=== PATIENT | male | born 1990 | race Caucasian/White ===

== ENCOUNTER 2016-04-30 12:56 | Inpatient (IN) | payer OTHER ==
[2016-04-30 15:02] VITALS: BMI 27.7
--- NOTE | 2016-04-30 16:09 | HP ---
COWS - Scale Resting Pulse: 0= IN 80 or Below Sweatin=Flushed/Facial Moisture Restless Observation: 3= Extraneous Movement Pupil Size: 2= Moderately Dilated Bone or Joint Aches: 2= Severe Diffuse Aches Runny Nose/ Eye Tearin= Runny Nose/Eyes GI Upset > 30mins: 3= Vomiting/Diarrhea Tremor Observation: 2= Slight Tremor Visible Yawning Observation: 2= >3x During Session Anxiety or Irritability: 2=Irritable/Anxious Goose Flesh Skin: 0=Smooth Skin COWS Score: 20 Admission ROS S - HPI Chief Complaint: I NEED HELP TO STOP USING HEROIN,COCAINE,AND XANAX Allergies/Adverse Reactions: Allergies Allergy/AdvReac Type Severity Reaction Status Date / Time No Known Allergies Allergy Verified 04/30/16 15:34 History of Present Illness: THIS 25 YEARS OLD MALE WITH HEROIN,COCAINE AND MARIJUANA DEPENDENCE,WITHDRAWAL SYMPTOM, ADMISSIONS IN DETOX TWICE BEFORE,LAST DETOX 08/30/13 TO 09/01/13 ANXIETY,DEPRESSION NICOTINE DEPENDENCE LONGEST PERIOD OF SOBRIETY 2 YEARS Exam Limitations: No Limitations - Ebola screening Have you traveled outside of the country in the last 21 days: No Have you had contact with anyone from an Ebola affected area: No Have you been sick,other than usual withdrawal symptoms: No Do you have a fever: No - Review of Systems Constitutional: Chills, Diaphoresis, Loss of Appetite, Malaise, Night Sweats, Weakness EENT: reports: Tearing, Nose Congestion Respiratory: reports: No Symptoms reported Cardiac: reports: No Symptoms Reported GI: reports: Diarrhea, Nausea, Vomiting, Abdominal cramping : reports: No Symptoms Reported Musculoskeletal: reports: Back Pain, Muscle Pain Integumentary: reports: Dryness Neuro: reports: Headache, Tremors Endocrine: reports: No Symptoms Reported Hematology: reports: No Symptoms Reported Psychiatric: reports: Agitated (INSOMNIA), Anxious Patient History - Patient Medical History Hx Anemia: No Hx Asthma: No Hx Chronic Obstructive Pulmonary Disease (COPD): No Hx Cancer: No Hx Cardiac Disorders: No Hx Congestive Heart Failure: No Hx Hypertension: No Hx Hypercholesterolemia: No Hx Pacemaker: No HX Cerebrovascular Accident: No Hx Seizures: No Hx Dementia: No Hx Diabetes: No Hx Gastrointestinal Disorders: No Hx Liver Disease: No Hx Genitourinary Disorders: No Hx Sexually Transmitted Disorders: No Hx Renal Disease (ESRD): No Hx Thyroid Disease: No Hx Human Immunodeficiency Virus (HIV): No (LAST 2014 NEGATIVE) Hx Hepatitis C: No Hx Depression: Yes (ANXIETY,INSOMNIA) Hx Suicide Attempt: No Hx Bipolar Disorder: No Hx Schizophrenia: No Other Medical History: NO SUICIDAL,NO HOMICIDAL - Patient Surgical History Past Surgical History: No - PPD History Previous Implant?: Yes Documented Results: Negative w/o proof Implanted On Prior R Admission?: Yes Date: 01/01/14 Results: negative PPD to be Administered?: Yes - Smoking Cessation Smoking history: Current every day smoker Have you smoked in the past 12 months: Yes Aproximately how many cigarettes per day: 20 Hx Chewing Tobacco Use: No Initiated information on smoking cessation: Yes 'Breaking Loose' booklet given: 04/30/16 - Substances Abused Heroin Route: Injection Frequency: Daily Amount used: 20 bags Age of first use: 15 Date of Last Use: 04/29/16 Alprazolam (Xanax) Route: Oral Frequency: Daily Amount used: 4mg Age of first use: 14 Date of Last Use: 04/29/16 Marijuana/Hashish Route: Smoking Frequency: Daily Amount used: 1 joint Age of first use: 12 Date of Last Use: 04/29/16 Family Disease History - Family Disease History Family History: Denies Admission Physical Exam S - Vital Signs Vital Signs: Vital Signs - 24 hr 04/30/16 15:00 Temperature 97.9 F Pulse Rate 79 Respiratory 18 Rate Blood Pressure 129/67 - Physical General Appearance: Yes: Moderate Distress, Tremorous, Irritable, Sweating, Anxious HEENTM: Yes: Nasal Congestion Respiratory: Yes: Lungs Clear Neck: Yes: Within Normal Limits Breast: Yes: Breast Exam Deferred Cardiology: Yes: Within Normal Limits, Regular Rhythm, S1, S2, Tachycardia Abdominal: Yes: Within Normal Limits, Normal Bowel Sounds, Non Tender, Flat, Soft Genitourinary: Yes: Within Normal Limits Back: Yes: Muscle Spasm Musculoskeletal: Yes: Back pain, Joint Stiffness, Muscle Pain Extremities: Yes: Tremors Neurological: Yes: hospital admissions officer II-XII NML intact, Fully Oriented, Alert, Motor Strength 5/5 Integumentary: Yes: Dry Lymphatic: Yes: Within Normal Limits - Diagnostic (1) Opioid dependence with withdrawal Current Visit: Yes Status: Acute (2) Uncomplicated sedative, hypnotic or anxiolytic withdrawal Current Visit: Yes Status: Acute (3) Cocaine dependence Current Visit: No Status: Acute (4) Nicotine dependence Current Visit: Yes Status: Acute (5) Insomnia Current Visit: Yes Status: Acute Cleared for Admission [facility] - Detox or Rehab [facility] Level of Care: Medically Managed Detox Regimen/Protocol: Methadone [facility] Breath Alcohol Content Breath Alcohol Content: 0 Urine Drug Screen - Results Urine Drug Screen Results: THC-Marijuana, OPI-Opiates, OXY-Oxycodone
[2016-04-30] MEDS ORDERED: MAGNESIUM CITRATE 300 ML BOTTLE PO PRN (16:20)
[2016-04-30] MEDS ORDERED: diphenhydrAMINE HCL 50 MG CAPSULE PO PRN (16:20)
[2016-04-30] MEDS ORDERED: guaiFENesin/D-METHORPHAN HB 10 ML UNIT-DOSE CUPS PO PRN (16:20)
[2016-04-30] MEDS ORDERED: MAGNESIUM HYDROX 2400MG/30ML ORAL SUSPENSION 30 ML CUP PO PRN (16:20)
[2016-04-30] MEDS ORDERED: P-EPHED 60MG/TRIPROLIDI 2.5MG TABLET PO PRN (16:20)
[2016-04-30] MEDS ORDERED: MENTHOL/PHENOL 1 EACH UD MM PRN (16:20)
[2016-04-30] MEDS ORDERED: LOPERAMIDE HCL 2 MG CAPSULE PO PRN (16:20)
[2016-04-30] MEDS ORDERED: IBUPROFEN 400 MG TABLET (FP) PO PRN (16:20)
[2016-04-30] MEDS ORDERED: MAG HYDROX/AL HYDROX/SIMETH 30 ML UNIT-DOSE CUP PO PRN (16:20)
[2016-04-30] MEDS ORDERED: chlordiazePOXIDE HCL 25 MG CAPSULE PO PRN (16:20)
[2016-04-30] MEDS ORDERED: ACETAMINOPHEN 325 MG TABLET (FP) PO PRN (16:20)
[2016-04-30] MEDS ORDERED: CYCLOBENZAPRINE HCL 10 MG TABLET (FP) PO PRN (16:40)
[2016-04-30] MEDS ORDERED: METHADONE HCL 10 MG TABLET (FOR DETOX USE ONLY) PO ONE ×3 (17:30→23:00)
[2016-04-30] MEDS: diazePAM 5 MG TABLET PO PRN ×2 (17:42→22:37)
[2016-04-30] MEDS: NICOTINE 21 MG/24 HOURS TOPICAL PATCH TD SCH (17:45)
--- NOTE | 2016-04-30 17:51 | CONSULT ---
[facility] Psychiatric Consult - Data Date of interview: 04/30/16 Admission source: [facility] Identifying data: Readmission to [facility] for this 25 y/o male seeking detox treatment on for heroin,cannabis,cocaine and benzodiazepine (xanax) dependence.Patient is single without children,domiciled, unemployed and supported by his fiancee. Substance Abuse History: - Smoking Cessation. Smoking history: Current every day smoker. Have you smoked in the past 12 months: Yes. Aproximately how many cigarettes per day: 20. Hx Chewing Tobacco Use: No. Initiated information on smoking cessation: Yes. 'Breaking Loose' booklet given: 04/30/16. - Substances Abused. Heroin. Route: Injection. Frequency: Daily. Amount used: 20 bags. Age of first use: 15. Date of Last Use: 04/29/16. Alprazolam (Xanax). Route: Oral. Frequency: Daily. Amount used: 4mg. Age of first use: 14. Date of Last Use: 04/29/16. Marijuana/Hashish. Route: Smoking. Frequency: Daily. Amount used: 1 joint. Age of first use: 12. Date of Last Use: 04/29/16. Confirmed by the patient. Medical History: Hepatitis C. Psychiatric History: Patient denies. Physical/Sexual Abuse/Trauma History: Patient denies. Additional Comment: Urine Drug Screen Results: THC-Marijuana, OPI-Opiates, OXY- Oxycodone.Noted. Mental Status Exam - Mental Status Exam Alert and Oriented to: Time, Place, Person Cognitive Function: Good Patient Appearance: Well Groomed (tall stature) Mood: Nervous, Anxious, Hopeful Affect: Mood Congruent Patient Behavior: Fatigued, Appropriate, Cooperative Speech Pattern: Clear, Appropriate Voice Loudness: Normal Thought Process: Goal Oriented Thought Disorder: Not Present Hallucinations: Denies Suicidal Ideation: Denies Homicidal Ideation: Denies Insight/Judgement: Poor Sleep: Poorly, Difficulty falling asleep Appetite: Good Muscle strength/Tone: Normal Gait/Station: Normal Psychiatric Findings - Problem List ([place] 1, 2,3) (1) Opioid dependence with withdrawal Current Visit: Yes Status: Acute (2) Uncomplicated sedative, hypnotic or anxiolytic withdrawal Current Visit: Yes Status: Acute (3) Cannabis dependence Current Visit: Yes Status: Acute (4) Cocaine dependence Current Visit: Yes Status: Acute (5) Nicotine dependence Current Visit: Yes Status: Acute (6) Drug-induced mood disorder Current Visit: Yes Status: Acute (7) Insomnia Current Visit: Yes Status: Acute - Initial Treatment Plan Initial Treatment Plan: Psychoeducation.Detoxification.Zolpidem 10 mg po hs prn.Patient is made aware of the risk of parasomnias.He agrees with this plan of care.Observation.
[2016-04-30] MEDS ORDERED: ZOLPIDEM TARTRATE 10 MG TABLET (PARK CARE ONLY) PO PRN (18:13)
[2016-04-30] MEDS ORDERED: THIAMINE HCL 100 MG TABLET (FP) PO SCH (22:00)
[2016-04-30] MEDS: cloNIDine HCL 0.1 MG TABLET PO SCH (22:37)
[2016-05-01 03:21] LABS: URINE APPEARANCE CLEAR; URINE BILIRUBIN NEGATIVE (NEGATIVE); URINE BLOOD NEGATIVE (NEGATIVE); URINE COLOR LTYELLOW; URINE GLUCOSE (UA) NEGATIVE (NEGATIVE); URINE KETONE NEGATIVE (NEGATIVE); URINE LEUK ESTERASE NEGATIVE (NEGATIVE); URINE NITRITE NEGATIVE (NEGATIVE); URINE PROTEIN NEGATIVE (NEGATIVE); URINE UROBILINOGEN NEGATIVE E.U./dl (0.2-1.0)
[2016-05-01 09:37] VITALS: BP 130/76; PULSE 65; TEMP 97.5
[2016-05-01] MEDS ORDERED: METHADONE HCL 10 MG TABLET (FOR DETOX USE ONLY) PO SCH (10:00)
[2016-05-01] MEDS ORDERED: PRENATAL VITAMINS W/ FOLIC ACID TABLET (FP) PO SCH (10:00)
[2016-05-01] MEDS ORDERED: METHADONE HCL 10 MG TABLET (FOR DETOX USE ONLY) PO ONE (10:00)
--- NOTE | 2016-05-01 10:17 | PN ---
[facility] CIWA - CIWA Score Nausea/Vomitin Muscle Tremors: 3 Anxiety: 3 Agitation: 2 Paroxysmal Sweats: 1-Minimal Palms Moist Orientation: 0-Oriented Tacttile Disturbances: 1-Very Mild Itch/Numbness Auditory Disturbances: 1-Very Mild Visual Disturbances: 1-Very Mild Sensitivity Headache: 2-Mild CIWA-Ar Total Score: 17 BHS COWS - Scale Resting Pulse: 0= [place] 80 or Below Sweatin= Chills/Flushing Restless Observation: 3= Extraneous Movement Pupil Size: 1= Pupils >than Normal Bone or Joint Aches: 2= Severe Diffuse Aches Runny Nose/ Eye Tearin= Runny Nose/Eyes GI Upset > 30mins: 2= Nausea/Diarrhea Tremor Observation of Outstretched Hands: 2= Slight Tremor Visible Yawning Observation: 1= 1-2x During Session Anxiety or Irritability: 2=Irritable/Anxious Goose Flesh Skin: 0=Smooth Skin COWS Score: 16 S Progress Note (SOAP) Subjective: ALERT,IRRITABLE,ANXIOUS,INTERRUPTED SLEEP,TREMOR,PAIN IN THE BODY AND BACK Objective: 05/01/16 10:15 Vital Signs Temperature 97.5 F L 05/01/16 09:37 Pulse Rate 65 05/01/16 09:37 Respiratory Rate 18 05/01/16 09:37 Blood Pressure 130/76 05/01/16 09:37 O2 Sat by Pulse Oximetry (%) EKG NSR,NORMAL ECG 05/01/16 10:16 Laboratory Last Values Urine Color Ltyellow 04/30/16 23:03 Urine Appearance Clear 04/30/16 23:03 Urine pH 6.0 (5.0-8.0) 04/30/16 23:03 Ur Specific [place] 1.008 (1.001-1.035) 04/30/16 23:03 Urine Protein Negative (NEGATIVE) 04/30/16 23:03 Urine Glucose (UA) Negative (NEGATIVE) 04/30/16 23:03 Urine Ketones Negative (NEGATIVE) 04/30/16 23:03 Urine Blood Negative (NEGATIVE) 04/30/16 23:03 Urine Nitrite Negative (NEGATIVE) 04/30/16 23:03 Urine Bilirubin Negative (NEGATIVE) 04/30/16 23:03 Urine Urobilinogen Negative E.U./dl (0.2-1.0) 04/30/16 23:03 Ur Leukocyte Esterase Negative (NEGATIVE) 04/30/16 23:03 LABS PENDING Assessment: 05/01/16 10:16 WITHDRAWAL SYMPTOM Plan: CONTINUE DETOX
[2016-05-01] MEDS: cloNIDine HCL 0.1 MG TABLET PO SCH (10:28)
[2016-05-01] MEDS: NICOTINE 21 MG/24 HOURS TOPICAL PATCH TD SCH (10:29)
[2016-05-01] MEDS: diazePAM 5 MG TABLET PO PRN (10:32)
[2016-05-01 11:08] LABS: MCH 30.8 pg (25.7-33.7); MCHC 33.9 g/dl (32.0-35.9); MEAN CELL VOLUME 90.8 fl (80-96); MEAN PLT VOLUME 9.4 fl (7.5-11.1); PLATELET COUNT 274 K/MM3 (134-434); RDW 12.9 % (11.9-15.9); WHITE BLOOD COUNT 7.1 K/mm3 (4.0-10.0)
[2016-05-01 11:12] LABS: ALBUMIN 4.1 g/dl (3.4-5.0); ANION GAP 6 (8-16); CALCIUM 9.3 mg/dL (8.5-10.1); CO2 30 mmol/L (21-32); CREATININE 0.7 mg/dL (0.7-1.3); GLUCOSE,RANDOM 96 mg/dL (74-106); SGOT/AST 14 U/L (15-37); SGPT/ALT 32 U/L (12-78)
[2016-05-01 11:14] LABS: ALK PHOS 66 U/L (45-117); BILIRUBIN,TOTAL 0.3 mg/dL (0.2-1.0); TOT PROT 7.4 g/dl (6.4-8.2)
--- NOTE | 2016-05-01 13:39 | EKG ---
Test Reason : Blood Pressure : / mmHG Vent. Rate : 060 BPM Atrial Rate : 060 BPM P-R Int : 130 ms QRS Dur : 084 ms QT Int : 380 ms P-R-T Axes : 043 015 025 degrees QTc Int : 380 ms NORMAL SINUS RHYTHM Confirmed by ANIBAL PACKER MD ([id number]) on 05/01/2016 1:39:34 PM Referred By: Confirmed By:ANIBAL PACKER MD
--- NOTE | 2016-05-01 14:33 | DS ---
[facility] Detox Discharge Summary Admission Date: 04/30/16 Discharge Date: 05/01/16 - History Present History: Cannabis Dependence, Cocaine Dependence, Opioid Dependence, Sedative Dependence Pertinent Past History: Denies - Physical Exam Results Vital Signs: Vital Signs Temperature 97.5 F L 05/01/16 09:37 Pulse Rate 65 05/01/16 09:37 Respiratory Rate 18 05/01/16 09:37 Blood Pressure 130/76 05/01/16 09:37 O2 Sat by Pulse Oximetry (%) Laboratory Last Values WBC 7.1 K/mm3 (4.0-10.0) 05/01/16 06:20 RBC 4.28 M/mm3 (4.00-5.60) 05/01/16 06:20 Hgb 13.2 GM/dL (11.7-16.9) D 05/01/16 06:20 Hct 38.8 % (35.4-49) 05/01/16 06:20 MCV 90.8 fl (80-96) 05/01/16 06:20 MCHC 33.9 g/dl (32.0-35.9) 05/01/16 06:20 RDW 12.9 % (11.9-15.9) 05/01/16 06:20 Plt Count 274 K/MM3 (134-434) 05/01/16 06:20 MPV 9.4 fl (7.5-11.1) D 05/01/16 06:20 Sodium 142 mmol/L (136-145) 05/01/16 06:20 Potassium 4.3 mmol/L (3.5-5.1) 05/01/16 06:20 Chloride 106 mmol/L (98-107) 05/01/16 06:20 Carbon Dioxide 30 mmol/L (21-32) 05/01/16 06:20 Anion Gap 6 (8-16) L 05/01/16 06:20 BUN 12 mg/dL (7-18) 05/01/16 06:20 Creatinine 0.7 mg/dL (0.7-1.3) 05/01/16 06:20 Creat Clearance w eGFR > 60 (>60) 05/01/16 06:20 Random Glucose 96 mg/dL (74-106) 05/01/16 06:20 Calcium 9.3 mg/dL (8.5-10.1) 05/01/16 06:20 Total Bilirubin 0.3 mg/dL (0.2-1.0) 05/01/16 06:20 AST 14 U/L (15-37) L D 05/01/16 06:20 ALT 32 U/L (12-78) 05/01/16 06:20 Alkaline Phosphatase 66 U/L (45-117) 05/01/16 06:20 Total Protein 7.4 g/dl (6.4-8.2) D 05/01/16 06:20 Albumin 4.1 g/dl (3.4-5.0) D 05/01/16 06:20 Urine Color Ltyellow 04/30/16 23:03 Urine Appearance Clear 04/30/16 23:03 Urine pH 6.0 (5.0-8.0) 04/30/16 23:03 Ur Specific [place] 1.008 (1.001-1.035) 04/30/16 23:03 Urine Protein Negative (NEGATIVE) 04/30/16 23:03 Urine Glucose (UA) Negative (NEGATIVE) 04/30/16 23:03 Urine Ketones Negative (NEGATIVE) 04/30/16 23:03 Urine Blood Negative (NEGATIVE) 04/30/16 23:03 Urine Nitrite Negative (NEGATIVE) 04/30/16 23:03 Urine Bilirubin Negative (NEGATIVE) 04/30/16 23:03 Urine Urobilinogen Negative E.U./dl (0.2-1.0) 04/30/16 23:03 Ur Leukocyte Esterase Negative (NEGATIVE) 04/30/16 23:03 RPR Titer Nonreactive (NONREACTIVE) 05/01/16 06:20 labs noted Pertinent Admission Physical Exam Findings: Withdrawal Symptoms - Medication Discharge Medications: Ambulatory Orders NK [No Known Home Medication] 12/30/13 - Diagnosis (1) Cannabis dependence Status: Acute (2) Cocaine dependence Status: Acute (3) Nicotine dependence Status: Acute (4) Opioid dependence with withdrawal Status: Acute (5) Uncomplicated sedative, hypnotic or anxiolytic withdrawal Status: Acute (6) Xanax use disorder, moderate Status: Acute - AMA Did Patient Leave Against Medical Advice: Yes (Left Hospital in stable condition )
[2016-05-02] MEDS ORDERED: METHADONE HCL 5 MG TABLET (FOR DETOX USE ONLY) PO SCH (10:00)
[2016-05-02] MEDS ORDERED: METHADONE HCL 5 MG TABLET (FOR DETOX USE ONLY) PO ONE (10:00)
[2016-05-03] MEDS ORDERED: METHADONE HCL 5 MG TABLET (FOR DETOX USE ONLY) PO ONE (10:00)
[2016-05-04] MEDS ORDERED: METHADONE HCL 10 MG TABLET (FOR DETOX USE ONLY) PO ONE (10:00)
[2016-05-04] MEDS ORDERED: METHADONE HCL 10 MG TABLET (FOR DETOX USE ONLY) PO SCH (10:00)
[2016-05-05] MEDS ORDERED: METHADONE HCL 5 MG TABLET (FOR DETOX USE ONLY) PO SCH (06:00)
[2016-05-05] MEDS ORDERED: METHADONE HCL 5 MG TABLET (FOR DETOX USE ONLY) PO ONE (06:00)
== END 2016-05-01 14:05 | disposition left against medical advice (07) | DRG 770 ==
LOC: YASAS 12:56 → Y6N 16:10
PROVIDERS: ADMIT Internal Medicine; ATTEND Internal Medicine
PROC: HZ2ZZZZ Detoxification Services for Substance Abuse Treatment (ICD-10-PCS; principal; 2016-05-01)
DX: F11.23 Opioid dependence with withdrawal (principal); F13.230 Sedative, hypnotic or anxiolytic dependence with withdrawal, uncomplicated; F14.20 Cocaine dependence, uncomplicated; F12.20 Cannabis dependence, uncomplicated; F17.210 Nicotine dependence, cigarettes, uncomplicated; F19.24 Other psychoactive substance dependence with psychoactive substance-induced mood disorder; G47.00 Insomnia, unspecified
CPT/HCPCS: 36415; 80053; 81003; 85027; 86593; 93005; 93010

== ENCOUNTER 2020-09-26 18:37 | Inpatient (IN) | payer OTHER ==
[2020-09-26 20:29] VITALS: BMI 29.3
[2020-09-26] MEDS ORDERED: diazePAM 5 MG TABLET PO PRN (23:55)
[2020-09-26] MEDS ORDERED: MAGNESIUM HYDROX 2400MG/30ML ORAL SUSPENSION 30 ML CUP PO PRN (23:55)
[2020-09-26] MEDS ORDERED: IBUPROFEN 400 MG TABLET (FP) PO PRN (23:55)
[2020-09-26] MEDS ORDERED: MAGNESIUM CITRATE 300 ML BOTTLE PO PRN (23:55)
[2020-09-26] MEDS ORDERED: METHADONE HCL 10 MG TABLET (FOR DETOX USE ONLY) PO ONE (23:55)
[2020-09-26] MEDS ORDERED: ONDANSETRON *ODT* 4 MG TABLET SL PRN (23:55)
[2020-09-26] MEDS ORDERED: MENTHOL/PHENOL 1 EACH UD MM PRN (23:55)
[2020-09-26] MEDS ORDERED: BISMUTH SUBSALICYLATE 524 MG/30 ML PO PRN (23:55)
[2020-09-26] MEDS ORDERED: ACETAMINOPHEN 325 MG TABLET (FP) PO PRN ×2 (23:55)
[2020-09-26] MEDS ORDERED: NICOTINE POLACRILEX 2 MG GUM BUC PRN (23:55)
[2020-09-26] MEDS ORDERED: METHOCARBAMOL 500 MG TABLET PO PRN (23:55)
[2020-09-26] MEDS ORDERED: cloNIDine HCL 0.1 MG TABLET PO PRN (23:55)
[2020-09-26] MEDS ORDERED: MAG HYDROX/AL HYDROX/SIMETH 30 ML UNIT-DOSE CUP PO PRN (23:55)
[2020-09-27] MEDS ORDERED: diazePAM 5 MG TABLET ONE ×3 (00:05→10:18)
[2020-09-27] MEDS ORDERED: METHADONE HCL 10 MG TABLET (FOR DETOX USE ONLY) ONE ×2 (00:06→10:20)
[2020-09-27] MEDS: diazePAM 5 MG TABLET PO SCH ×5 (00:08→22:43)
[2020-09-27] MEDS ORDERED: hydrOXYzine PAMOATE 25 MG CAPSULE (FP) PO ONE ×2 (04:20→10:19)
[2020-09-27] MEDS: hydrOXYzine PAMOATE 25 MG CAPSULE (FP) PO SCH ×5 (05:50→22:44)
[2020-09-27] MEDS ORDERED: METHADONE (DETOX) 20 MG, METHADONE (DETOX) 5 MG PO ONE (10:00)
[2020-09-27] MEDS ORDERED: METHADONE HCL 5 MG TABLET (FOR DETOX USE ONLY) ONE (10:19)
[2020-09-27] MEDS: PRENATAL VITAMINS W/ FOLIC ACID TABLET (FP) PO SCH (10:23)
[2020-09-27] MEDS ORDERED: METHOCARBAMOL 500 MG TABLET ONE (10:26)
[2020-09-27] MEDS ORDERED: THIAMINE HCL 100 MG TABLET (FP) PO SCH (22:00)
[2020-09-27] MEDS ORDERED: MELATONIN 5 MG TABLETS PO SCH (22:00)
[2020-09-28] MEDS ORDERED: diazePAM 5 MG TABLET PO SCH (06:00)
[2020-09-28] MEDS: hydrOXYzine PAMOATE 25 MG CAPSULE (FP) PO SCH ×2 (06:18→10:20)
[2020-09-28 09:24] VITALS: BP 142/83; PULSE 67; TEMP 97.2
[2020-09-28] MEDS ORDERED: METHADONE HCL 10 MG TABLET (FOR DETOX USE ONLY) PO ONE (10:00)
[2020-09-28] MEDS: PRENATAL VITAMINS W/ FOLIC ACID TABLET (FP) PO SCH (10:20)
[2020-09-29] MEDS ORDERED: diazePAM 5 MG TABLET PO SCH (06:00)
[2020-09-29] MEDS ORDERED: METHADONE (DETOX) 10 MG, METHADONE (DETOX) 5 MG PO ONE (10:00)
[2020-09-30] MEDS ORDERED: diazePAM 5 MG TABLET PO ONE (06:00)
[2020-09-30] MEDS ORDERED: METHADONE HCL 10 MG TABLET (FOR DETOX USE ONLY) PO ONE (10:00)
[2020-10-01] MEDS ORDERED: METHADONE HCL 5 MG TABLET (FOR DETOX USE ONLY) PO ONE (06:00)
== END 2020-09-28 11:47 | disposition left against medical advice (07) | DRG 770 ==
LOC: YASAS 18:37 → Y3N 09-27 13:29 → MERGE 09-27 13:29
PROVIDERS: ADMIT Allergy & Immunology; ATTEND Allergy & Immunology
PROC: HZ2ZZZZ Detoxification Services for Substance Abuse Treatment (ICD-10-PCS; principal; 2020-09-27)
DX: F11.23 Opioid dependence with withdrawal (principal); F10.230 Alcohol dependence with withdrawal, uncomplicated; F14.20 Cocaine dependence, uncomplicated; F12.20 Cannabis dependence, uncomplicated; F17.210 Nicotine dependence, cigarettes, uncomplicated
CPT/HCPCS: C9803; U0003; U0005